=== PATIENT | female | born 1960 | race Caucasian/White ===

== ENCOUNTER 2017-11-23 18:45 | Emergency (ER) | payer OTHER ==
[~2017-11-23] VITALS: Ht 152.4 cm; Wt 81.7 kg
[~2017-11-23 18:45] MED LIST: CLON1 PO; EPIN.3I IM; LAMO100 PO; LEVSOD75 PO; LOVA20 PO; TRAZ100 PO; VENL75 PO; [UNRECOGNIZED DRUG - OTHER]
== END 2017-11-23 20:44 | disposition home or self-care (01) ==
LOC: ER 18:45
DX: H53.9 Unspecified visual disturbance (principal); Z88.8 Allergy status to other drugs, medicaments and biological substances; Z79.899 Other long term (current) drug therapy; G43.909 Migraine, unspecified, not intractable, without status migrainosus; F31.9 Bipolar disorder, unspecified; F41.9 Anxiety disorder, unspecified; K21.9 Gastro-esophageal reflux disease without esophagitis; Z87.891 Personal history of nicotine dependence; E03.9 Hypothyroidism, unspecified
CPT/HCPCS: 99283

== ENCOUNTER 2022-10-15 09:16 | Day surgery (SDC) | payer OTHER ==
[~2022-10-15] VITALS: Ht 154.9 cm; Wt 77.3 kg
[2022-10-15] MEDS ORDERED: CATAPRES0.1 MG PO (09:50)
[2022-10-15] MEDS ORDERED: AMLODIPINE BESYL5 MG PO (09:52)
[2022-10-15] MEDS ORDERED: ESTRADIOL1 M1 PO (09:53)
[2022-10-15] MEDS ORDERED: CYCL10 PO (09:53)
[2022-10-15] MEDS ORDERED: Naproxen375 MG PO (09:54)
--- NOTE | 2022-10-15 09:56 | NUR ---
10/15/22 0956 Lupis Ambrose AT 0950 PLEDGET AT 0907
[2022-10-15] MEDS ORDERED: MOME.1TO (10:00)
[2022-10-15 11:04] VITALS: BP 122/67
--- NOTE | 2022-10-15 11:11 | NUR ---
10/15/22 1111 ROSANGELA KHALIL IV OUT, WNL
== END 2022-10-15 11:25 | disposition home or self-care (01) ==
LOC: ORSCSDS 09:16
PROVIDERS: Ophthalmology
PROC: 08RJ3JZ Replacement of Right Lens with Synthetic Substitute, Percutaneous Approach (ICD-10-PCS; principal; 2022-10-15 11:00)
DX: H25.11 Age-related nuclear cataract, right eye (principal); I10 Essential (primary) hypertension; K21.9 Gastro-esophageal reflux disease without esophagitis; F32.A Depression, unspecified; F31.9 Bipolar disorder, unspecified; F41.9 Anxiety disorder, unspecified; Z87.19 Personal history of other diseases of the digestive system; Z79.899 Other long term (current) drug therapy
CPT/HCPCS: J2250; J3010; J3301; J7040; V2632